=== PATIENT | male | born 1975 | race Caucasian/White ===

== ENCOUNTER → 2018-01-23 | Outpatient (CLI) | payer OTHER ==
[~2018-01-23] MED LIST: MXZC25 PO
--- NOTE | 2018-01-23 17:01 | DIAGNOSTIC IMAGING REPORT ---
L KNEE 3 VIEWS CLINICAL HISTORY: 42 years-old Male presenting with LT KNEE PAIN. TECHNIQUE: Frontal, lateral, and sunrise views of the left knee were obtained. COMPARISON: None. FINDINGS: Knee joint congruent. No acute fracture or malalignment. No advanced degenerative change. Trace knee joint effusion. IMPRESSION: No acute osseous injury. Electronically signed by: Robby Johnson M.D. 01/23/2018 5:00 PM Dictated Date/Time: 01/23/2018 4:58 PM
== END | disposition home or self-care (01) ==
LOC: C.RAD1850 16:30
PROVIDERS: ATTEND Nurse Practitioner Family
DX: M25.562 Pain in left knee (principal)